=== PATIENT | female | born 1960 | race Caucasian/White ===

== ENCOUNTER 2016-08-09 19:32 | Emergency (ER) | payer MEDICAID, OTHER ==
[~2016-08-09] VITALS: Ht 157.5 cm; Wt 79.0 kg
[2016-08-09 20:47] VITALS: BP 157/93
[2016-08-09] MEDS ORDERED: KETOROLAC 60MG/2ML VIAL IM ONE (23:45)
== END 2016-08-10 05:53 | disposition home or self-care (01) ==
LOC: ER 08-10 03:52
DX: M25.512 Pain in left shoulder (principal); M25.50 Pain in unspecified joint
CPT/HCPCS: 99282

== ENCOUNTER 2018-04-05 17:35 | Emergency (ER) | payer MEDICAID, OTHER ==
[~2018-04-05] VITALS: Ht 157.5 cm; Wt 71.0 kg
[2018-04-05] MEDS ORDERED: ONDANSETRON HCL 4MG/2ML INJ IV STA (19:13)
[2018-04-05] MEDS ORDERED: SODIUM CHLORIDE 0.9% 1,000 ML IV ONE (19:13)
[2018-04-05] MEDS ORDERED: KETOROLAC 30MG/ML VIAL IV STA (19:13)
[2018-04-05 20:19] LABS: BASOPHILS % 0.4 % (0.0-2.0); EOSINOPHILS % 1.4 % (0.0-5.0); HEMATOCRIT. 39.8 % (36.0-48.0); HEMOGLOBIN. 13.7 g/dL (12.0-16.0); LYMPHOCYTES % 22.9 % (20.0-50.0); MEAN CORPUSCULAR HEMOGLOBIN 28.8 pg (28.0-32.0); MEAN CORPUSCULAR VOLUME 83.4 fL (81.0-99.0); MEAN PLATELET VOLUME 8.4 fl (7.4-10.4); MONOCYTES % 6.8 % (2.0-8.0); NEUTROPHILS % 68.5 % (40.0-76.0); PLATELET 250 x1000/uL (130-400); RED BLOOD CELL COUNT 4.77 mill/uL (4.2-5.4); RED CELL DISTRIBUTION WIDTH 13.2 % (11.6-14.6)
[2018-04-05 20:25] LABS: CHLORIDE 104 mEq/L (98-107)
[2018-04-05 23:15] VITALS: BP 128/79
== END 2018-04-05 23:20 | disposition home or self-care (01) ==
LOC: ER 17:35
DX: S20.219A Contusion of unspecified front wall of thorax, initial encounter (principal); E11.9 Type 2 diabetes mellitus without complications; E78.00 Pure hypercholesterolemia, unspecified; I10 Essential (primary) hypertension; Z98.51 Tubal ligation status; V89.2XXA Person injured in unspecified motor-vehicle accident, traffic, initial encounter; Y93.89 Activity, other specified; Y92.89 Other specified places as the place of occurrence of the external cause; Y99.8 Other external cause status
CPT/HCPCS: 36415; 71045; 71250; 80048; 82962; 84484; 85025; 96374; 96375; 99284; J1885; J2405; J7030

== ENCOUNTER 2020-01-24 00:25 | Emergency (ER) | payer SELFPAY ==
[~2020-01-24] VITALS: Ht 157.5 cm; Wt 76.0 kg
[2020-01-24] MEDS ORDERED: KETOROLAC 30MG/ML VIAL IM ONE (01:15)
[2020-01-24] MEDS ORDERED: CYCLOBENZAPRINE 10MG TABLET PO ONE (01:15)
[2020-01-24 02:11] VITALS: BP 123/78
== END 2020-01-24 03:00 | disposition home or self-care (01) ==
LOC: ER 00:25
DX: M62.830 Muscle spasm of back (principal); E11.9 Type 2 diabetes mellitus without complications; Z98.51 Tubal ligation status
CPT/HCPCS: 96372; 99283; J1885

== ENCOUNTER 2023-04-27 17:08 | Emergency (ER) | payer MEDICARE ==
[~2023-04-27] VITALS: Ht 157.5 cm; Wt 73.0 kg
[2023-04-27 17:30] VITALS: BP 146/82; PULSE 88; RESP 18; TEMP 97.7; O2SAT 99
== END 2023-04-27 18:22 | disposition left against medical advice (07) ==
LOC: ER 17:49
DX: M79.671 Pain in right foot (principal); Z53.21 Procedure and treatment not carried out due to patient leaving prior to being seen by health care provider
CPT/HCPCS: 99281

== ENCOUNTER 2023-11-25 13:43 | Emergency (ER) | payer MEDICARE ==
[~2023-11-25] VITALS: Ht 157.5 cm; Wt 52.2 kg
[2023-11-25 13:45] VITALS: O2SAT 100
[2023-11-25] MEDS: KETOROLAC 30MG/ML VIAL IM STA (14:06)
[2023-11-25] MEDS: TETANUS, DIPHTHERIA, PERTUSSIS VAC/PF 0.5ML (>10YR OLD) IM ONE (14:15)
[2023-11-25] MEDS ORDERED: NAPR-677 MT (16:47)
[2023-11-25 17:10] VITALS: BP 149/77; PULSE 66; RESP 18; TEMP 98.2
== END 2023-11-25 17:28 | disposition home or self-care (01) ==
LOC: ER 13:43
DX: S80.211A Abrasion, right knee, initial encounter (principal); E11.9 Type 2 diabetes mellitus without complications; Z98.51 Tubal ligation status; W18.30XA Fall on same level, unspecified, initial encounter; Y93.89 Activity, other specified; Y92.89 Other specified places as the place of occurrence of the external cause; Y99.8 Other external cause status
CPT/HCPCS: 99284; 71045; 72170; 73030; 73060; 73070; 73560; 73590; 73600; 73620; 90715; 90471; 96372; J1885